=== PATIENT | female | born 1975 | race African-American/Black ===

== ENCOUNTER → 2018-09-05 | Outpatient (CLI) | payer MEDICAID ==
[~2018-09-05] MED LIST: NO HOME MEDICATIONS; NORCO 325 MG-51 TAB PO
== END ==
LOC: MC.RAD 07:00
DX: Z12.31 Encounter for screening mammogram for malignant neoplasm of breast (principal)

== ENCOUNTER 2019-11-15 10:14 | Emergency (ER) | payer OTHER, MEDICAID ==
[~2019-11-15] VITALS: Ht 175.3 cm; Wt 68.2 kg
[2019-11-15 10:19] VITALS: BP 111/61; TEMP 98.6
[2019-11-15] MEDS ORDERED: PREDNISONE20 MG PO (11:27)
[2019-11-15] MEDS ORDERED: ZITHROMAX Z PA250 MG PO (11:27)
[2019-11-15] MEDS ORDERED: TESSALON P100 MG/CAP PO (11:27)
[2019-11-15 11:49] VITALS: PULSE 67
== END 2019-11-15 11:49 | disposition home or self-care (01) ==
LOC: COL.ER 10:14
DX: J20.9 Acute bronchitis, unspecified (principal); S29.011A Strain of muscle and tendon of front wall of thorax, initial encounter; F17.290 Nicotine dependence, other tobacco product, uncomplicated; X58.XXXA Exposure to other specified factors, initial encounter
CPT/HCPCS: J1885

== ENCOUNTER 2019-11-17 17:53 | Emergency (ER) | payer OTHER, MEDICAID ==
[~2019-11-17] VITALS: Ht 175.3 cm; Wt 65.9 kg
[~2019-11-17 17:53] MED LIST changes: +PREDNISONE20 MG PO; +TESSALON P100 MG/CAP PO; +ZITHROMAX Z PA250 MG PO
[2019-11-17 18:09] VITALS: TEMP 98.7
[2019-11-17 19:07] LABS: ALANINE AMINOTRANSFERASE 7 U/L (9-52); ALBUMIN 4.2 gm/dL (3.5-5.0); ALKALINE PHOSPHATASE 47 U/L (50-136); ANION GAP 8 mmol/L (7-16); AST,SGOT 20 U/L (15-37); BILIRUBIN,TOTAL 1.8 mg/dL (0.0-1.0); BLOOD UREA NITROGEN 16 mg/dL (7-17); C-REACTIVE PROTEIN < 0.5 mg/dL (0.0-0.9); CALCIUM 9.1 mg/dL (8.4-10.2); CARBON DIOXIDE 23 mmol/L (22-30); CHLORIDE 109 mmol/L (98-107); CREATININE, serum 0.84 (0.52-1.25); GLUCOSE 101 mg/dL (74-106); LIPASE 18 U/L (23-300); POTASSIUM 4.4 mmol/L (3.4-5.0); SODIUM 140 mmol/L (137-145); TOTAL PROTEIN 8.2 gm/dL (6.4-8.2)
[2019-11-17 19:17] LABS: TROPONIN-I < 0.012 ng/mL (0.000-0.035)
[2019-11-17 20:02] LABS: BASO % 0.3 % (0.0-2.0); HEMATOCRIT 40.3 % (37.0-47.0); HEMOGLOBIN 13.3 g/dl (12.5-16.0); LYMPH % 13.5 % (20.0-51.0); MEAN CELL VOLUME 95 fl (80.0-100.0); MEAN CORPUSCULAR HEMOGLOBIN 31 pg (27.0-31.0); MEAN CORPUSCULAR HGB CONC 33 g/dl (33.0-37.0); MEAN PLATELET VOLUME 10.1 fl (7.4-10.4); MONO # 0.2 (0.1-0.6); MONO % 2.9 % (1.7-9.3); PLATELET COUNT 276 K/mm3 (130-400); RED BLOOD COUNT 4.24 M/mm3 (4.10-5.30); REDCELL DISTRIBUTION WIDTH-CV 12.4 % (11.5-14.5)
[2019-11-17] MEDS ORDERED: NORCO 325 MG-51 TAB PO (20:43)
[2019-11-17 21:39] VITALS: BP 113/80; PULSE 53
== END 2019-11-17 21:45 | disposition home or self-care (01) ==
LOC: COL.ER 17:53
PROVIDERS: Emergency Medicine
DX: J40 Bronchitis, not specified as acute or chronic (principal); R07.89 Other chest pain
CPT/HCPCS: J1170; J2405; J7030